=== PATIENT | female | born 1930 | race African-American/Black ===

== ENCOUNTER 2019-06-03 17:39 | Inpatient (IN) | payer MEDICARE, MEDICAID ==
[~2019-06-03] VITALS: Ht 165.1 cm; Wt 59.0 kg
[2019-06-03] MEDS ORDERED: MORPHINE SULFATE 4 MG/ML CPJ (NOT FOR IM USE) IV STA (18:18)
[2019-06-03] MEDS ORDERED: ONDANSETRON HCL 4MG/2ML INJ IV STA (18:18)
[2019-06-03 18:36] LABS: HEMATOCRIT. 34.2 % (36.0-48.0); HEMOGLOBIN. 11.1 g/dL (12.0-16.0); MEAN CORPUSCULAR HEMOGLOBIN 29.2 pg (28.0-32.0); MEAN CORPUSCULAR VOLUME 89.6 fL (81.0-99.0); MEAN PLATELET VOLUME 10.8 fl (7.4-10.4); PLATELET 117 x1000/uL (130-400); RED BLOOD CELL COUNT 3.82 mill/uL (4.2-5.4); RED CELL DISTRIBUTION WIDTH 14.6 % (11.6-14.6)
[2019-06-03 18:43] LABS: CHLORIDE 107 mEq/L (98-107)
[2019-06-03 18:45] LABS: INR 1.3; PROTHROMBIN TIME 12.7 sec (9.6-11.0)
[2019-06-03] MEDS ORDERED: POTASSIUM CHLORIDE 20MEQ TABLET SR PO ONE (19:00)
[2019-06-03 19:01] LABS: PLATELET ESTIMATE DECREASED
[2019-06-03] MEDS ORDERED: MORPHINE SULFATE 4 MG/ML CPJ (NOT FOR IM USE) IV ONE (20:15)
[2019-06-03 23:57] VITALS: BP 154/78
[2019-06-04] VITALS: BP 154/78
[2019-06-04] MEDS ORDERED: ONDANSETRON HCL 4MG/2ML INJ IV PRN ×2 (01:00→13:45)
[2019-06-04] MEDS: HYDROCODONE/ACETAMINOPHEN 5/325MG TABLET PO PRN ×2 (02:00→09:51)
[2019-06-04 04:00] VITALS: BP 152/82
[2019-06-04 06:34] LABS: BASOPHILS % 0.5 % (0.0-2.0); EOSINOPHILS % 0.1 % (0.0-5.0); HEMATOCRIT. 32.2 % (36.0-48.0); HEMOGLOBIN. 10.4 g/dL (12.0-16.0); MEAN CORPUSCULAR HEMOGLOBIN 29.1 pg (28.0-32.0); MEAN CORPUSCULAR VOLUME 89.9 fL (81.0-99.0); MEAN PLATELET VOLUME 10.5 fl (7.4-10.4); MONOCYTES % 8.5 % (2.0-8.0); NEUTROPHILS % 82.9 % (40.0-76.0); PLATELET 112 x1000/uL (130-400); RED BLOOD CELL COUNT 3.58 mill/uL (4.2-5.4); RED CELL DISTRIBUTION WIDTH 14.2 % (11.6-14.6)
[2019-06-04 06:46] LABS: CHLORIDE 106 mEq/L (98-107)
[2019-06-04] MEDS: SODIUM CHLORIDE 0.45% 1,000 ML IV SCH ×2 (08:02→18:10)
[2019-06-04] MEDS ORDERED: ENOXAPARIN 30MG/0.3ML SYR SUBCUT SCH (09:00)
[2019-06-04] MEDS ORDERED: ENOXAPARIN 40MG/0.4ML SYR SUBCUT SCH (09:00)
[2019-06-04] MEDS: HYDROMORPHONE HCL/PF 2MG/ML CPJ IV PRN ×2 (10:38→22:11)
[2019-06-04] MEDS ORDERED: BACITRACIN 15GM TUBE TOP ONE (11:10)
[2019-06-04] MEDS ORDERED: GENTAMICIN SULF 40MG/ML 2ML VIAL ONE (11:10)
[2019-06-04] MEDS ORDERED: BACITRACIN 50,000 UNITS/VIAL ONE (11:11)
[2019-06-04] MEDS ORDERED: VANCOMYCIN HCL 1 GM/VIAL ONE (11:11)
[2019-06-04] MEDS ORDERED: INFLUENZA VIRUS VACCINE(AFLURIA) 0.5ML SYR IM ONE (12:00)
[2019-06-04] MEDS ORDERED: PNEUMOCOCCAL 23-VAL P-SAC VAC 0.5 ML IM ONE (12:00)
[2019-06-04] MEDS ORDERED: NEOSTIGMINE METHYLSULFATE 1MG/ML 10 ML VIAL ONE (12:20)
[2019-06-04] MEDS ORDERED: ROCURONIUM BROMIDE 10MG/ML VIAL 5ML IV ONE (12:20)
[2019-06-04] MEDS ORDERED: GLYCOPYRROLATE 0.2 MG/ML 2ML VIAL ONE (12:20)
[2019-06-04] MEDS ORDERED: PROPOFOL 200MG/20ML VIAL IV ONE (12:20)
[2019-06-04] MEDS ORDERED: FENTANYL CITRATE/PF 50MCG/ML 2ML VIAL ONE ×2 (12:20→12:59)
[2019-06-04] MEDS ORDERED: MIDAZOLAM HCL 2 MG/2 ML VIAL ONE (12:20)
[2019-06-04] MEDS ORDERED: SUCCINYLCHOLINE CHLORIDE 200MG/10ML IV ONE (12:21)
[2019-06-04] MEDS ORDERED: PHENYLEPHRINE HCL 10 MG/ML 1ML (IV VIAL) IV ONE (12:21)
[2019-06-04] MEDS ORDERED: CEFAZOLIN SODIUM 1000MG/VIAL ONE (12:21)
[2019-06-04] MEDS ORDERED: ONDANSETRON HCL 4MG/2ML INJ ONE (12:21)
[2019-06-04] MEDS ORDERED: METOCLOPRAMIDE HCL 10MG/2ML VIAL ONE (12:21)
[2019-06-04] MEDS ORDERED: SODIUM CHLORIDE 0.9% 10ML VIAL ONE (12:21)
[2019-06-04] MEDS ORDERED: LIDOCAINE HCL/PF 1% 10 MG/ML 5ML VIAL ONE (12:21)
[2019-06-04] MEDS ORDERED: EPHEDRINE SULFATE 50MG/ML VIAL ONE (12:21)
[2019-06-04] MEDS ORDERED: ETOMIDATE 2MG/ML 10ML VIAL IV ONE (12:39)
[2019-06-04] MEDS ORDERED: TRANEXAMIC ACID 1,000 MG in SODIUM CHLORIDE 0.9% 100 ML IV NR (12:45)
[2019-06-04] MEDS ORDERED: MEPERIDINE HCL/PF 25MG/ML CPJ IV PRN (13:45)
[2019-06-04] MEDS ORDERED: HYDROMORPHONE HCL/PF 2MG/ML CPJ IV PRN (13:45)
[2019-06-04] MEDS ORDERED: MORPHINE SULFATE 2 MG/ML CPJ (NOT FOR IM USE) IV PRN (13:45)
[2019-06-04] MEDS ORDERED: SODIUM CHLORIDE 0.9% 1,000 ML IV ONE (14:30)
[2019-06-04] MEDS ORDERED: NALOXONE INJ IV PRN (15:00)
[2019-06-04] MEDS ORDERED: HYDROMORPHONE PCA 10MG/50ML IV PRN (15:00)
[2019-06-04] MEDS ORDERED: ONDANSETRON INJ IV PRN (15:00)
[2019-06-04] MEDS ORDERED: DIPHENHYDRAMINE INJ IV PRN (15:00)
[2019-06-04 16:00] LABS: HEMATOCRIT 30.4 % (36.0-48.0); MEAN CORPUSCULAR HEMOGLOBIN 29.3 pg (28.0-32.0); MEAN CORPUSCULAR VOLUME 89.3 fL (81.0-99.0); PLATELET 106 x1000/uL (130-400); RED BLOOD CELL COUNT 3.41 mill/uL (4.2-5.4); RED CELL DISTRIBUTION WIDTH 14.1 % (11.6-14.6)
[2019-06-04 16:14] LABS: CHLORIDE 109 mEq/L (98-107)
[2019-06-04 20:00] VITALS: BP 132/71
[2019-06-04] MEDS: CEFAZOLIN 1000MG PREMIX 50 ML IV SCH (21:51)
[2019-06-04 22:33] VITALS: BP 129/72
[2019-06-05] VITALS: BP 141/78
[2019-06-05 04:00] VITALS: BP 131/69
[2019-06-05] MEDS: HYDROCODONE/ACETAMINOPHEN 5/325MG TABLET PO PRN (05:12)
[2019-06-05] MEDS: CEFAZOLIN 1000MG PREMIX 50 ML IV SCH (06:31)
[2019-06-05 06:35] LABS: HEMATOCRIT. 32.7 % (36.0-48.0); HEMOGLOBIN. 10.7 g/dL (12.0-16.0); MEAN CORPUSCULAR HEMOGLOBIN 29.2 pg (28.0-32.0); MEAN CORPUSCULAR VOLUME 89.4 fL (81.0-99.0); MEAN PLATELET VOLUME 11.3 fl (7.4-10.4); PLATELET 111 x1000/uL (130-400); RED BLOOD CELL COUNT 3.65 mill/uL (4.2-5.4); RED CELL DISTRIBUTION WIDTH 14.3 % (11.6-14.6)
[2019-06-05 06:55] LABS: CHLORIDE 105 mEq/L (98-107)
[2019-06-05 08:00] VITALS: BP 156/80
[2019-06-05] MEDS: HYDROMORPHONE HCL/PF 2MG/ML CPJ IV PRN ×2 (09:42→22:37)
[2019-06-05] MEDS: SODIUM CHLORIDE 0.45% 1,000 ML IV SCH (10:16)
[2019-06-05] MEDS ORDERED: NITROGLYCERIN 0.4MG TABLET SL SL PRN (11:00)
[2019-06-05] MEDS: ASPIRIN 81MG EC TABLET PO SCH (11:21)
[2019-06-05] MEDS ORDERED: POTASSIUM CHLORIDE 20MEQ TABLET SR PO NR (11:30)
[2019-06-05 12:00] VITALS: BP 120/70
[2019-06-05] MEDS ORDERED: MAGNESIUM 2 G PREMIX 50 ML IV NR (12:30)
[2019-06-05 13:16] LABS: PLATELET ESTIMATE SLIGHTLY DECREASED
[2019-06-05 14:42] LABS: CLARITY URINE CLEAR (CLEAR); COLOR URINE YELLOW (YELLOW); KETONES URINE 1+ (NEGATIVE); LEUKOCYTE ESTERASE URINE NEGATIVE (NEGATIVE); NITRITE URINE NEGATIVE (NEGATIVE); OCCULT BLOOD URINE NEGATIVE (NEGATIVE); PH URINE 5.5 (4.5-8.0); PROTEIN URINE 1+ (NEGATIVE); SPECIFIC GRAVITY URINE 1.026 (1.005-1.030); UROBILINOGEN URINE 0.2 E.U./dL (0.2-1.0)
[2019-06-05 16:00] VITALS: BP 136/62
[2019-06-05 20:00] VITALS: BP 135/78
[2019-06-06] VITALS: BP 115/70
[2019-06-06] MEDS: SODIUM CHLORIDE 0.45% 1,000 ML IV SCH (00:21)
[2019-06-06 04:00] VITALS: BP 132/73
[2019-06-06 06:38] LABS: BASOPHILS % 0.3 % (0.0-2.0); EOSINOPHILS % 0.9 % (0.0-5.0); HEMATOCRIT. 28.8 % (36.0-48.0); HEMOGLOBIN. 9.5 g/dL (12.0-16.0); LYMPHOCYTES % 7.4 % (20.0-50.0); MEAN CORPUSCULAR HEMOGLOBIN 29.4 pg (28.0-32.0); MEAN CORPUSCULAR VOLUME 89.6 fL (81.0-99.0); MEAN PLATELET VOLUME 9.5 fl (7.4-10.4); MONOCYTES % 9.9 % (2.0-8.0); NEUTROPHILS % 81.5 % (40.0-76.0); PLATELET 84 x1000/uL (130-400); RED BLOOD CELL COUNT 3.22 mill/uL (4.2-5.4); RED CELL DISTRIBUTION WIDTH 14.4 % (11.6-14.6)
[2019-06-06] MEDS: HYDROCODONE/ACETAMINOPHEN 5/325MG TABLET PO PRN (06:55)
[2019-06-06 08:00] VITALS: BP 133/86
[2019-06-06] MEDS: ASPIRIN 81MG EC TABLET PO SCH (08:10)
[2019-06-06] MEDS ORDERED: POTASSIUM CHLORIDE 20MEQ TABLET SR PO NR (10:00)
[2019-06-06 10:01] LABS: CHLORIDE 106 mEq/L (98-107)
[2019-06-06] MEDS: HYDROMORPHONE HCL/PF 2MG/ML CPJ IV PRN ×2 (10:23→20:51)
[2019-06-06 12:00] VITALS: BP 110/72
[2019-06-06 16:00] VITALS: BP 155/99
[2019-06-06 20:00] VITALS: BP 143/75
[2019-06-06] MEDS: ATORVASTATIN CALCIUM 20MG TABLET PO SCH (20:41)
[2019-06-06] MEDS: ACETAMINOPHEN 325MG TABLET PO PRN (20:41)
[2019-06-07] VITALS: BP 104/70
[2019-06-07] MEDS: CEFTRIAXONE 1 G PREMIX 50 ML IV SCH ×2 (02:15→21:31)
[2019-06-07 04:00] VITALS: BP 138/85
[2019-06-07 07:29] LABS: HEMATOCRIT. 28.8 % (36.0-48.0); HEMOGLOBIN. 9.4 g/dL (12.0-16.0); MEAN CORPUSCULAR VOLUME 89.1 fL (81.0-99.0); MEAN PLATELET VOLUME 10.4 fl (7.4-10.4); PLATELET 120 x1000/uL (130-400); RED BLOOD CELL COUNT 3.23 mill/uL (4.2-5.4)
[2019-06-07 08:00] VITALS: BP 152/94
[2019-06-07] MEDS: ASPIRIN 81MG TABLET PO SCH (09:05)
[2019-06-07] MEDS: SODIUM CHLORIDE 0.45% 1,000 ML IV SCH ×2 (09:24→21:44)
[2019-06-07 10:14] LABS: PLATELET ESTIMATE DECREASED
[2019-06-07 12:00] VITALS: BP 127/87
[2019-06-07 16:00] VITALS: BP 138/72
[2019-06-07] MEDS: ACETAMINOPHEN 325MG TABLET PO PRN (16:15)
[2019-06-07 20:00] VITALS: BP 129/90
[2019-06-07] MEDS: ATORVASTATIN CALCIUM 20MG TABLET PO SCH (21:31)
[2019-06-08] VITALS: BP 138/78
[2019-06-08] MEDS: HYDROCODONE/ACETAMINOPHEN 5/325MG TABLET PO PRN (03:35)
[2019-06-08 04:00] VITALS: BP 138/78
[2019-06-08 07:01] LABS: CHLORIDE 109 mEq/L (98-107)
[2019-06-08 07:15] LABS: BASOPHILS % 0.5 % (0.0-2.0); EOSINOPHILS % 4.1 % (0.0-5.0); HEMATOCRIT. 26.9 % (36.0-48.0); LYMPHOCYTES % 9.8 % (20.0-50.0); MEAN CORPUSCULAR HEMOGLOBIN 29.8 pg (28.0-32.0); MEAN CORPUSCULAR VOLUME 89.2 fL (81.0-99.0); MONOCYTES % 10.9 % (2.0-8.0); NEUTROPHILS % 74.7 % (40.0-76.0); PLATELET 149 x1000/uL (130-400); RED BLOOD CELL COUNT 3.02 mill/uL (4.2-5.4); RED CELL DISTRIBUTION WIDTH 14.1 % (11.6-14.6)
[2019-06-08 08:00] VITALS: BP 136/72
[2019-06-08] MEDS: ASPIRIN 81MG TABLET PO SCH (09:22)
[2019-06-08] MEDS ORDERED: ENOXAPARIN 30MG/0.3ML SYR SUBCUT SCH (10:30)
[2019-06-08] MEDS: SODIUM CHLORIDE 0.45% 1,000 ML IV SCH (11:50)
[2019-06-08 12:00] VITALS: BP 135/95
[2019-06-08] MEDS ORDERED: BISACODYL 10MG SUPP PR PRN (15:15)
[2019-06-08] MEDS: LACTULOSE 20G/30ML UDC PO SCH ×4 (15:45→21:10)
[2019-06-08 16:00] VITALS: BP 135/95
[2019-06-08] MEDS ORDERED: DOCUSATE SODIUM 100MG CAPSULE PO SCH (17:00)
[2019-06-08 20:00] VITALS: BP 136/90
[2019-06-08] MEDS: ATORVASTATIN CALCIUM 20MG TABLET PO SCH (20:34)
[2019-06-08] MEDS: CEFTRIAXONE 1 G PREMIX 50 ML IV SCH (20:34)
[2019-06-09] MEDS ORDERED: POLYETHYLENE GLYCOL 3350 (17GM) 1 DOSE PACK PO SCH (09:00)
== END 2019-06-08 22:50 | DRG 853 ==
LOC: ER 17:39 → 6EST 20:07 → EDBEDREQTM 20:12 → EDBEDREQ 20:12 → ENRESERV 22:36
PROVIDERS: ADMIT Hospitalist; ATTEND Hospitalist
PROC: 0SRR0JA Replacement of Right Hip Joint, Femoral Surface with Synthetic Substitute, Uncemented, Open Approach (ICD-10-PCS; principal; 2019-06-05)
DX: A41.9 Sepsis, unspecified organism (principal); S72.031A Displaced midcervical fracture of right femur, initial encounter for closed fracture; I21.4 Non-ST elevation (NSTEMI) myocardial infarction; I47.2 Ventricular tachycardia; I11.9 Hypertensive heart disease without heart failure; E87.6 Hypokalemia; D69.6 Thrombocytopenia, unspecified; M19.90 Unspecified osteoarthritis, unspecified site; D64.9 Anemia, unspecified; E11.42 Type 2 diabetes mellitus with diabetic polyneuropathy; W07.XXXA Fall from chair, initial encounter; M54.40 Lumbago with sciatica, unspecified side; R26.9 Unspecified abnormalities of gait and mobility; G89.29 Other chronic pain; I48.91 Unspecified atrial fibrillation; Z79.899 Other long term (current) drug therapy; Y93.89 Activity, other specified; Y92.89 Other specified places as the place of occurrence of the external cause; Z79.4 Long term (current) use of insulin; Y99.8 Other external cause status
CPT/HCPCS: 36415; 71045; 72170; 73521; 80048; 80061; 81003; 83735; 83880; 84132; 84145; 84443; 84484; 85027; 88305; 88311; 93005; 93306; 93970; 96374; 96375; 96376; 97110; 97116; 97162; 99291; C1893; J0330; J0690; J0696; J1170; J1580; J1650; J2250; J2270; J2370; J2405; J2704; J2710; J2765; J3010; J3370; J3475; J3490; J7050

== ENCOUNTER 2019-06-08 22:45 | Inpatient (IN) | payer MEDICARE, MEDICAID ==
[~2019-06-08] VITALS: Ht 165.1 cm; Wt 59.0 kg
[2019-06-08 23:00] VITALS: BP_SYST 139; BP_DIAS 81; BP_DIAS 91
[2019-06-09] MEDS ORDERED: HYDROMORPHONE HCL/PF 2MG/ML CPJ IV PRN (01:00)
[2019-06-09] MEDS ORDERED: BISACODYL 5MG TABLET PO PRN (01:00)
[2019-06-09] MEDS ORDERED: ONDANSETRON HCL 4MG/2ML INJ IV PRN (01:00)
[2019-06-09] MEDS ORDERED: NITROGLYCERIN 0.4MG TABLET SL SL PRN (01:00)
[2019-06-09 07:09] LABS: BASOPHILS % 0.7 % (0.0-2.0); EOSINOPHILS % 2.9 % (0.0-5.0); HEMATOCRIT. 28.9 % (36.0-48.0); HEMOGLOBIN. 9.8 g/dL (12.0-16.0); LYMPHOCYTES % 11.2 % (20.0-50.0); MEAN CORPUSCULAR HEMOGLOBIN 30.2 pg (28.0-32.0); MEAN PLATELET VOLUME 9.3 fl (7.4-10.4); MONOCYTES % 12.2 % (2.0-8.0); PLATELET 185 x1000/uL (130-400); RED BLOOD CELL COUNT 3.24 mill/uL (4.2-5.4)
[2019-06-09 07:36] LABS: CHLORIDE 108 mEq/L (98-107)
[2019-06-09 08:00] VITALS: BP 129/84
[2019-06-09] MEDS: HYDROCODONE/ACETAMINOPHEN 5/325MG TABLET PO PRN (08:58)
[2019-06-09] MEDS: LACTULOSE 20G/30ML UDC PO SCH ×4 (08:59→21:50)
[2019-06-09] MEDS: POLYETHYLENE GLYCOL 3350 (17GM) 1 DOSE PACK PO SCH (08:59)
[2019-06-09] MEDS: ASPIRIN 81MG TABLET PO SCH (08:59)
[2019-06-09] MEDS: DOCUSATE SODIUM 100MG CAPSULE PO SCH ×2 (08:59→17:00)
[2019-06-09] MEDS: ENOXAPARIN 30MG/0.3ML SYR SUBCUT SCH (11:23)
[2019-06-09] MEDS ORDERED: INFLUENZA VIRUS VACCINE(AFLURIA) 0.5ML SYR IM ONE (12:00)
[2019-06-09] MEDS ORDERED: POTASSIUM CHLORIDE 20MEQ TABLET SR PO SCH (13:00)
[2019-06-09] MEDS ORDERED: POTASSIUM CHLORIDE 20MEQ TABLET SR PO ONE (13:15)
[2019-06-09 20:00] VITALS: BP 126/83
[2019-06-09] MEDS ORDERED: CEFTRIAXONE 1 G PREMIX 50 ML IV SCH (21:00)
[2019-06-09] MEDS: ATORVASTATIN CALCIUM 20MG TABLET PO SCH (21:50)
[2019-06-10 07:04] LABS: BASOPHILS % 0.9 % (0.0-2.0); EOSINOPHILS % 4.7 % (0.0-5.0); HEMATOCRIT. 27.6 % (36.0-48.0); LYMPHOCYTES % 11.2 % (20.0-50.0); MEAN CORPUSCULAR HEMOGLOBIN 28.8 pg (28.0-32.0); MEAN CORPUSCULAR VOLUME 88.5 fL (81.0-99.0); MEAN PLATELET VOLUME 8.9 fl (7.4-10.4); MONOCYTES % 12.4 % (2.0-8.0); NEUTROPHILS % 70.8 % (40.0-76.0); PLATELET 211 x1000/uL (130-400); RED BLOOD CELL COUNT 3.12 mill/uL (4.2-5.4); RED CELL DISTRIBUTION WIDTH 14.1 % (11.6-14.6)
[2019-06-10 07:27] LABS: FOLIC ACID (FOLATE) SERUM 18.4 ng/mL (>5.38)
[2019-06-10 07:34] LABS: CHLORIDE 108 mEq/L (98-107)
[2019-06-10 07:47] LABS: PHOSPHORUS 3.4 mg/dL (2.5-4.9)
[2019-06-10 07:52] LABS: TOTAL IRON BINDING CAPACITY 127 ug/dL (250-450)
[2019-06-10 08:02] VITALS: BP 148/78
[2019-06-10] MEDS ORDERED: POTASSIUM CHLORIDE 20MEQ TABLET SR PO NR (08:15)
[2019-06-10] MEDS: ASPIRIN 81MG TABLET PO SCH (08:29)
[2019-06-10] MEDS: DOCUSATE SODIUM 100MG CAPSULE PO SCH ×2 (08:30→16:31)
[2019-06-10] MEDS: POLYETHYLENE GLYCOL 3350 (17GM) 1 DOSE PACK PO SCH (08:30)
[2019-06-10] MEDS: LACTULOSE 20G/30ML UDC PO SCH ×4 (08:30→21:00)
[2019-06-10] MEDS: ENOXAPARIN 30MG/0.3ML SYR SUBCUT SCH (08:30)
[2019-06-10 10:05] LABS: CLARITY URINE CLEAR (CLEAR); COLOR URINE YELLOW (YELLOW); KETONES URINE TRACE (NEGATIVE); LEUKOCYTE ESTERASE URINE TRACE (NEGATIVE); NITRITE URINE NEGATIVE (NEGATIVE); OCCULT BLOOD URINE NEGATIVE (NEGATIVE); PROTEIN URINE TRACE (NEGATIVE); SPECIFIC GRAVITY URINE 1.022 (1.005-1.030); UROBILINOGEN URINE 0.2 E.U./dL (0.2-1.0)
[2019-06-10] MEDS ORDERED: FERR-71 PO (14:32)
[2019-06-10] MEDS ORDERED: [UNRECOGNIZED DRUG - CODE] PO (14:32)
[2019-06-10 20:00] VITALS: BP 131/80
[2019-06-10] MEDS: ATORVASTATIN CALCIUM 20MG TABLET PO SCH (21:33)
[2019-06-11] MEDS: HYDROCODONE/ACETAMINOPHEN 5/325MG TABLET PO PRN (03:55)
[2019-06-11 08:02] VITALS: BP 136/77
[2019-06-11] MEDS: ASPIRIN 81MG TABLET PO SCH (08:33)
[2019-06-11] MEDS: DOCUSATE SODIUM 100MG CAPSULE PO SCH ×2 (08:33→16:25)
[2019-06-11] MEDS: ENOXAPARIN 30MG/0.3ML SYR SUBCUT SCH (08:34)
[2019-06-11] MEDS: LACTULOSE 20G/30ML UDC PO SCH ×4 (09:00→20:50)
[2019-06-11] MEDS: POLYETHYLENE GLYCOL 3350 (17GM) 1 DOSE PACK PO SCH (09:00)
[2019-06-11 10:07] LABS: BASOPHILS % 0.9 % (0.0-2.0); HEMATOCRIT. 27.9 % (36.0-48.0); HEMOGLOBIN. 9.3 g/dL (12.0-16.0); LYMPHOCYTES % 13.5 % (20.0-50.0); MEAN CORPUSCULAR HEMOGLOBIN 29.7 pg (28.0-32.0); MEAN CORPUSCULAR VOLUME 88.4 fL (81.0-99.0); MEAN PLATELET VOLUME 8.3 fl (7.4-10.4); MONOCYTES % 10.8 % (2.0-8.0); NEUTROPHILS % 70.8 % (40.0-76.0); PLATELET 259 x1000/uL (130-400); RED BLOOD CELL COUNT 3.15 mill/uL (4.2-5.4); RED CELL DISTRIBUTION WIDTH 14.1 % (11.6-14.6)
[2019-06-11 10:15] LABS: CHLORIDE 106 mEq/L (98-107)
[2019-06-11] MEDS ORDERED: POTASSIUM CHLORIDE 20MEQ TABLET SR PO SCH (11:00)
[2019-06-11] MEDS ORDERED: AMLO5TAB88 PO (17:12)
[2019-06-11] MEDS ORDERED: OMEP40CA34 MT (17:14)
[2019-06-11 20:00] VITALS: BP 122/83
[2019-06-11] MEDS: ATORVASTATIN CALCIUM 20MG TABLET PO SCH (20:50)
[2019-06-12] MEDS: HYDROCODONE/ACETAMINOPHEN 5/325MG TABLET PO PRN (05:31)
[2019-06-12 08:16] VITALS: BP 144/80
[2019-06-12] MEDS: POLYETHYLENE GLYCOL 3350 (17GM) 1 DOSE PACK PO SCH (08:25)
[2019-06-12] MEDS: LACTULOSE 20G/30ML UDC PO SCH ×4 (09:34→20:23)
[2019-06-12] MEDS: DOCUSATE SODIUM 100MG CAPSULE PO SCH ×2 (09:34→16:05)
[2019-06-12] MEDS: FERROUS SULFATE 325MG TABLET PO SCH (11:57)
[2019-06-12] MEDS: AMLODIPINE 5MG TABLET PO SCH (11:58)
[2019-06-12] MEDS: OMEPRAZOLE 20MG CAPSULE EXTENDED RELEASE PO SCH (16:05)
[2019-06-12 20:00] VITALS: BP 127/69
[2019-06-12] MEDS: ATORVASTATIN CALCIUM 20MG TABLET PO SCH (20:24)
[2019-06-13 07:45] VITALS: BP 130/82
[2019-06-13] MEDS: LACTULOSE 20G/30ML UDC PO SCH ×4 (08:14→21:46)
[2019-06-13] MEDS: FERROUS SULFATE 325MG TABLET PO SCH (08:14)
[2019-06-13] MEDS: OMEPRAZOLE 20MG CAPSULE EXTENDED RELEASE PO SCH (08:14)
[2019-06-13] MEDS: POLYETHYLENE GLYCOL 3350 (17GM) 1 DOSE PACK PO SCH (08:14)
[2019-06-13] MEDS: AMLODIPINE 5MG TABLET PO SCH (08:15)
[2019-06-13] MEDS: DOCUSATE SODIUM 100MG CAPSULE PO SCH ×2 (08:15→16:12)
[2019-06-13] MEDS: ACETAMINOPHEN 325MG TABLET PO PRN ×2 (08:16→17:45)
[2019-06-13] MEDS: GABAPENTIN 100MG CAPSULE PO SCH (13:16)
[2019-06-13 20:00] VITALS: BP 137/85
[2019-06-13] MEDS: ATORVASTATIN CALCIUM 20MG TABLET PO SCH (21:46)
[2019-06-14 08:00] VITALS: BP 131/81
[2019-06-14] MEDS: POLYETHYLENE GLYCOL 3350 (17GM) 1 DOSE PACK PO SCH (08:48)
[2019-06-14] MEDS: FERROUS SULFATE 325MG TABLET PO SCH (08:49)
[2019-06-14] MEDS: LACTULOSE 20G/30ML UDC PO SCH ×4 (08:49→21:00)
[2019-06-14] MEDS: GABAPENTIN 100MG CAPSULE PO SCH (08:49)
[2019-06-14] MEDS: DOCUSATE SODIUM 100MG CAPSULE PO SCH ×2 (08:50→17:00)
[2019-06-14] MEDS: AMLODIPINE 5MG TABLET PO SCH (08:50)
[2019-06-14] MEDS ORDERED: FAMOTIDINE 20MG TABLET PO SCH (09:00)
[2019-06-14] MEDS ORDERED: MECLIZINE 25MG TABLET PO PRN (12:30)
[2019-06-14] MEDS: ENOXAPARIN 30MG/0.3ML SYR SUBCUT SCH (12:46)
[2019-06-14] MEDS: ASPIRIN 81MG TABLET PO SCH (17:00)
[2019-06-14 20:00] VITALS: BP 132/74
[2019-06-14] MEDS: ATORVASTATIN CALCIUM 20MG TABLET PO SCH (21:12)
[2019-06-14] MEDS: FAMOTIDINE 20MG TABLET PO SCH (21:12)
[2019-06-15 06:09] LABS: 25-HYDROXY VITAMIN D3 4.4 ng/mL (.)
[2019-06-15 07:59] LABS: BASOPHILS % 0.8 % (0.0-2.0); EOSINOPHILS % 1.7 % (0.0-5.0); HEMATOCRIT. 28.7 % (36.0-48.0); HEMOGLOBIN. 9.2 g/dL (12.0-16.0); MEAN CORPUSCULAR HEMOGLOBIN 28.6 pg (28.0-32.0); MEAN PLATELET VOLUME 8.4 fl (7.4-10.4); MONOCYTES % 7.8 % (2.0-8.0); NEUTROPHILS % 77.7 % (40.0-76.0); PLATELET 264 x1000/uL (130-400); RED BLOOD CELL COUNT 3.23 mill/uL (4.2-5.4); RED CELL DISTRIBUTION WIDTH 14.1 % (11.6-14.6)
[2019-06-15 08:10] VITALS: BP 126/84
[2019-06-15] MEDS: ASPIRIN 81MG TABLET PO SCH (08:30)
[2019-06-15] MEDS: POLYETHYLENE GLYCOL 3350 (17GM) 1 DOSE PACK PO SCH (08:30)
[2019-06-15] MEDS: FERROUS SULFATE 325MG TABLET PO SCH (08:30)
[2019-06-15] MEDS: FAMOTIDINE 20MG TABLET PO SCH ×2 (08:30→20:52)
[2019-06-15] MEDS: DOCUSATE SODIUM 100MG CAPSULE PO SCH ×2 (08:30→16:24)
[2019-06-15] MEDS: AMLODIPINE 5MG TABLET PO SCH (08:30)
[2019-06-15] MEDS: LACTULOSE 20G/30ML UDC PO SCH ×4 (08:30→20:52)
[2019-06-15] MEDS: GABAPENTIN 100MG CAPSULE PO SCH (08:30)
[2019-06-15 08:34] LABS: CHLORIDE 108 mEq/L (98-107)
[2019-06-15] MEDS: ENOXAPARIN 30MG/0.3ML SYR SUBCUT SCH (08:35)
[2019-06-15 08:40] LABS: PHOSPHORUS 3.1 mg/dL (2.5-4.9)
[2019-06-15 15:16] LABS: BASOPHILS % 0.7 % (0.0-2.0); EOSINOPHILS % 1.1 % (0.0-5.0); HEMATOCRIT. 28.7 % (36.0-48.0); HEMOGLOBIN. 9.4 g/dL (12.0-16.0); LYMPHOCYTES % 9.8 % (20.0-50.0); MEAN CORPUSCULAR VOLUME 88.8 fL (81.0-99.0); MEAN PLATELET VOLUME 8.1 fl (7.4-10.4); NEUTROPHILS % 81.4 % (40.0-76.0); PLATELET 262 x1000/uL (130-400); RED BLOOD CELL COUNT 3.23 mill/uL (4.2-5.4); RED CELL DISTRIBUTION WIDTH 14.3 % (11.6-14.6)
[2019-06-15] MEDS: ERGOCALCIFEROL 50000UNITS CAPSULE PO SCH (17:00)
[2019-06-15 20:00] VITALS: BP 119/70
[2019-06-15] MEDS: ATORVASTATIN CALCIUM 20MG TABLET PO SCH (20:52)
[2019-06-16] MEDS: HYDROCODONE/ACETAMINOPHEN 5/325MG TABLET PO PRN ×2 (05:46→08:28)
[2019-06-16 06:36] LABS: BASOPHILS % 0.8 % (0.0-2.0); EOSINOPHILS % 2.5 % (0.0-5.0); HEMATOCRIT. 26.1 % (36.0-48.0); HEMOGLOBIN. 8.6 g/dL (12.0-16.0); LYMPHOCYTES % 10.8 % (20.0-50.0); MEAN CORPUSCULAR HEMOGLOBIN 29.1 pg (28.0-32.0); MEAN CORPUSCULAR VOLUME 88.7 fL (81.0-99.0); MEAN PLATELET VOLUME 8.1 fl (7.4-10.4); MONOCYTES % 7.7 % (2.0-8.0); NEUTROPHILS % 78.2 % (40.0-76.0); PLATELET 256 x1000/uL (130-400); RED BLOOD CELL COUNT 2.95 mill/uL (4.2-5.4); RED CELL DISTRIBUTION WIDTH 14.5 % (11.6-14.6)
[2019-06-16 07:36] LABS: CHLORIDE 108 mEq/L (98-107)
[2019-06-16 07:51] VITALS: BP 136/68
[2019-06-16] MEDS: FAMOTIDINE 20MG TABLET PO SCH ×2 (08:26→20:53)
[2019-06-16] MEDS: LACTULOSE 20G/30ML UDC PO SCH ×5 (08:27→20:52)
[2019-06-16] MEDS: GABAPENTIN 100MG CAPSULE PO SCH (08:27)
[2019-06-16] MEDS: FERROUS SULFATE 325MG TABLET PO SCH (08:27)
[2019-06-16] MEDS: CALCIUM CARBONATE/VITAMIN D3 500MG TABLET PO SCH (08:27)
[2019-06-16] MEDS: POLYETHYLENE GLYCOL 3350 (17GM) 1 DOSE PACK PO SCH (08:27)
[2019-06-16] MEDS: ASPIRIN 81MG TABLET PO SCH (08:27)
[2019-06-16] MEDS: AMLODIPINE 5MG TABLET PO SCH (08:29)
[2019-06-16] MEDS: ENOXAPARIN 40MG/0.4ML SYR SUBCUT SCH (08:29)
[2019-06-16] MEDS: DOCUSATE SODIUM 100MG CAPSULE PO SCH ×3 (08:29→17:00)
[2019-06-16] MEDS ORDERED: POTASSIUM CHLORIDE 20MEQ TABLET SR PO NR (13:45)
[2019-06-16 20:00] VITALS: BP 105/62
[2019-06-16] MEDS: ATORVASTATIN CALCIUM 20MG TABLET PO SCH (20:53)
[2019-06-17 08:00] VITALS: BP 108/61
[2019-06-17 08:08] LABS: BASOPHILS % 1.1 % (0.0-2.0); EOSINOPHILS % 3.2 % (0.0-5.0); HEMATOCRIT. 24.9 % (36.0-48.0); HEMOGLOBIN. 8.3 g/dL (12.0-16.0); MEAN CORPUSCULAR HEMOGLOBIN 29.4 pg (28.0-32.0); MEAN CORPUSCULAR VOLUME 88.5 fL (81.0-99.0); MEAN PLATELET VOLUME 8.2 fl (7.4-10.4); MONOCYTES % 8.8 % (2.0-8.0); NEUTROPHILS % 74.9 % (40.0-76.0); PLATELET 241 x1000/uL (130-400); RED BLOOD CELL COUNT 2.81 mill/uL (4.2-5.4); RED CELL DISTRIBUTION WIDTH 14.5 % (11.6-14.6)
[2019-06-17 08:35] LABS: CHLORIDE 110 mEq/L (98-107)
[2019-06-17] MEDS: LACTULOSE 20G/30ML UDC PO SCH ×4 (08:52→20:28)
[2019-06-17] MEDS: ENOXAPARIN 40MG/0.4ML SYR SUBCUT SCH (08:52)
[2019-06-17] MEDS: ASPIRIN 81MG TABLET PO SCH (08:52)
[2019-06-17] MEDS: FERROUS SULFATE 325MG TABLET PO SCH (08:53)
[2019-06-17] MEDS: GABAPENTIN 100MG CAPSULE PO SCH (08:53)
[2019-06-17] MEDS: AMLODIPINE 5MG TABLET PO SCH (08:53)
[2019-06-17] MEDS: FAMOTIDINE 20MG TABLET PO SCH ×2 (08:53→20:28)
[2019-06-17] MEDS: CALCIUM CARBONATE/VITAMIN D3 500MG TABLET PO SCH (08:53)
[2019-06-17] MEDS: DOCUSATE SODIUM 100MG CAPSULE PO SCH ×2 (08:54→16:02)
[2019-06-17] MEDS: HYDROCODONE/ACETAMINOPHEN 5/325MG TABLET PO PRN (08:54)
[2019-06-17] MEDS: POLYETHYLENE GLYCOL 3350 (17GM) 1 DOSE PACK PO SCH (08:54)
[2019-06-17 20:00] VITALS: BP 132/66
[2019-06-17] MEDS: ATORVASTATIN CALCIUM 20MG TABLET PO SCH (20:27)
[2019-06-18 08:00] VITALS: BP 101/52
[2019-06-18] MEDS: CALCIUM CARBONATE/VITAMIN D3 500MG TABLET PO SCH (08:59)
[2019-06-18] MEDS: GABAPENTIN 100MG CAPSULE PO SCH (08:59)
[2019-06-18] MEDS: FAMOTIDINE 20MG TABLET PO SCH ×2 (08:59→20:22)
[2019-06-18] MEDS: ASPIRIN 81MG TABLET PO SCH (08:59)
[2019-06-18] MEDS: DOCUSATE SODIUM 100MG CAPSULE PO SCH ×2 (08:59→16:55)
[2019-06-18] MEDS: LACTULOSE 20G/30ML UDC PO SCH ×4 (09:00→20:22)
[2019-06-18] MEDS: FERROUS SULFATE 325MG TABLET PO SCH (09:00)
[2019-06-18] MEDS: POLYETHYLENE GLYCOL 3350 (17GM) 1 DOSE PACK PO SCH (09:00)
[2019-06-18] MEDS: AMLODIPINE 5MG TABLET PO SCH (09:00)
[2019-06-18] MEDS: ENOXAPARIN 40MG/0.4ML SYR SUBCUT SCH (09:01)
[2019-06-18 17:09] LABS: EOSINOPHILS % 2.3 % (0.0-5.0); HEMATOCRIT. 27.8 % (36.0-48.0); HEMOGLOBIN. 9.2 g/dL (12.0-16.0); LYMPHOCYTES % 10.6 % (20.0-50.0); MEAN CORPUSCULAR HEMOGLOBIN 29.3 pg (28.0-32.0); MEAN CORPUSCULAR VOLUME 88.9 fL (81.0-99.0); MONOCYTES % 8.2 % (2.0-8.0); NEUTROPHILS % 77.9 % (40.0-76.0); PLATELET 318 x1000/uL (130-400); RED BLOOD CELL COUNT 3.13 mill/uL (4.2-5.4); RED CELL DISTRIBUTION WIDTH 14.8 % (11.6-14.6)
[2019-06-18 20:00] VITALS: BP 142/82
[2019-06-18] MEDS: ATORVASTATIN CALCIUM 20MG TABLET PO SCH (20:22)
[2019-06-19 07:45] VITALS: BP 142/75
[2019-06-19 08:18] LABS: CHLORIDE 108 mEq/L (98-107)
[2019-06-19 08:20] LABS: BASOPHILS % 1.2 % (0.0-2.0); HEMATOCRIT. 26.6 % (36.0-48.0); HEMOGLOBIN. 8.9 g/dL (12.0-16.0); MEAN CORPUSCULAR HEMOGLOBIN 29.8 pg (28.0-32.0); MEAN CORPUSCULAR VOLUME 88.8 fL (81.0-99.0); MEAN PLATELET VOLUME 8.5 fl (7.4-10.4); MONOCYTES % 8.7 % (2.0-8.0); NEUTROPHILS % 76.1 % (40.0-76.0); PLATELET 278 x1000/uL (130-400); RED BLOOD CELL COUNT 2.99 mill/uL (4.2-5.4); RED CELL DISTRIBUTION WIDTH 14.6 % (11.6-14.6)
[2019-06-19] MEDS: FAMOTIDINE 20MG TABLET PO SCH ×2 (08:37→20:12)
[2019-06-19] MEDS: GABAPENTIN 100MG CAPSULE PO SCH (08:37)
[2019-06-19] MEDS: FERROUS SULFATE 325MG TABLET PO SCH (08:37)
[2019-06-19] MEDS: ASPIRIN 81MG TABLET PO SCH (08:37)
[2019-06-19] MEDS: DOCUSATE SODIUM 100MG CAPSULE PO SCH ×2 (08:37→16:41)
[2019-06-19] MEDS: AMLODIPINE 5MG TABLET PO SCH (08:37)
[2019-06-19] MEDS: CALCIUM CARBONATE/VITAMIN D3 500MG TABLET PO SCH (08:37)
[2019-06-19] MEDS: POLYETHYLENE GLYCOL 3350 (17GM) 1 DOSE PACK PO SCH (08:38)
[2019-06-19] MEDS: ENOXAPARIN 40MG/0.4ML SYR SUBCUT SCH (08:38)
[2019-06-19] MEDS: LACTULOSE 20G/30ML UDC PO SCH ×4 (08:38→20:12)
[2019-06-19] MEDS ORDERED: POTASSIUM CHLORIDE 20MEQ TABLET SR PO NR (11:00)
[2019-06-19 20:00] VITALS: BP 118/69
[2019-06-19] MEDS: ATORVASTATIN CALCIUM 20MG TABLET PO SCH (20:12)
[2019-06-20 08:00] VITALS: BP 133/84
[2019-06-20] MEDS: DOCUSATE SODIUM 100MG CAPSULE PO SCH ×2 (08:28→16:35)
[2019-06-20] MEDS: GABAPENTIN 100MG CAPSULE PO SCH (08:28)
[2019-06-20] MEDS: CALCIUM CARBONATE/VITAMIN D3 500MG TABLET PO SCH (08:28)
[2019-06-20] MEDS: AMLODIPINE 5MG TABLET PO SCH (08:28)
[2019-06-20] MEDS: FAMOTIDINE 20MG TABLET PO SCH ×2 (08:28→21:56)
[2019-06-20] MEDS: FERROUS SULFATE 325MG TABLET PO SCH (08:28)
[2019-06-20] MEDS: ASPIRIN 81MG TABLET PO SCH (08:29)
[2019-06-20] MEDS: LACTULOSE 20G/30ML UDC PO SCH ×4 (08:29→21:00)
[2019-06-20] MEDS: ENOXAPARIN 40MG/0.4ML SYR SUBCUT SCH (08:29)
[2019-06-20] MEDS: POLYETHYLENE GLYCOL 3350 (17GM) 1 DOSE PACK PO SCH (08:29)
[2019-06-20 08:37] LABS: CHLORIDE 109 mEq/L (98-107)
[2019-06-20 20:00] VITALS: BP 117/76
[2019-06-20] MEDS: ATORVASTATIN CALCIUM 20MG TABLET PO SCH (21:56)
[2019-06-21] MEDS: FAMOTIDINE 20MG TABLET PO SCH (08:00)
[2019-06-21 08:18] VITALS: BP 134/78
[2019-06-21] MEDS: LACTULOSE 20G/30ML UDC PO SCH ×4 (09:00→22:05)
[2019-06-21] MEDS: DOCUSATE SODIUM 100MG CAPSULE PO SCH ×2 (09:10→16:18)
[2019-06-21] MEDS: AMLODIPINE 5MG TABLET PO SCH (09:10)
[2019-06-21] MEDS: CALCIUM CARBONATE/VITAMIN D3 500MG TABLET PO SCH (09:10)
[2019-06-21] MEDS: GABAPENTIN 100MG CAPSULE PO SCH (09:10)
[2019-06-21] MEDS: POLYETHYLENE GLYCOL 3350 (17GM) 1 DOSE PACK PO SCH (09:10)
[2019-06-21] MEDS: ASPIRIN 81MG TABLET PO SCH (09:10)
[2019-06-21] MEDS: FERROUS SULFATE 325MG TABLET PO SCH (09:10)
[2019-06-21] MEDS: ENOXAPARIN 40MG/0.4ML SYR SUBCUT SCH (09:11)
[2019-06-21] MEDS: ATORVASTATIN CALCIUM 20MG TABLET PO SCH (22:09)
[2019-06-22 08:11] VITALS: BP 129/79
[2019-06-22] MEDS ORDERED: FAMOTIDINE 20MG TABLET PO SCH (09:00)
[2019-06-22] MEDS: FERROUS SULFATE 325MG TABLET PO SCH (11:51)
[2019-06-22] MEDS: GABAPENTIN 100MG CAPSULE PO SCH (11:52)
[2019-06-22] MEDS: DOCUSATE SODIUM 100MG CAPSULE PO SCH (11:52)
[2019-06-22] MEDS: LACTULOSE 20G/30ML UDC PO SCH (11:52)
[2019-06-22] MEDS: ASPIRIN 81MG TABLET PO SCH (11:52)
[2019-06-22] MEDS: POLYETHYLENE GLYCOL 3350 (17GM) 1 DOSE PACK PO SCH (11:52)
[2019-06-22] MEDS: AMLODIPINE 5MG TABLET PO SCH (11:53)
[2019-06-22] MEDS: ENOXAPARIN 40MG/0.4ML SYR SUBCUT SCH (11:57)
[2019-06-22] MEDS: ERGOCALCIFEROL 50000UNITS CAPSULE PO SCH (11:57)
[2019-06-22] MEDS: CALCIUM CARBONATE/VITAMIN D3 500MG TABLET PO SCH (11:57)
[2019-06-22 12:48] VITALS: BP 127/83
== END 2019-06-22 13:20 | disposition home health service (06) | DRG 535 ==
LOC: UNDOADMIN 06-09 00:18 → 6EST 06-09 00:18 → UNDOADMIN 06-09 00:30
PROVIDERS: ADMIT Physical Medicine & Rehabilitation Spinal Cord Injury Medicine; ATTEND Hospitalist
DX: S72.091A Other fracture of head and neck of right femur, initial encounter for closed fracture (principal); I21.4 Non-ST elevation (NSTEMI) myocardial infarction; A41.9 Sepsis, unspecified organism; E46 Unspecified protein-calorie malnutrition; I47.2 Ventricular tachycardia; M79.609 Pain in unspecified limb; R26.9 Unspecified abnormalities of gait and mobility; I10 Essential (primary) hypertension; G89.29 Other chronic pain; D64.9 Anemia, unspecified; D72.829 Elevated white blood cell count, unspecified; D69.6 Thrombocytopenia, unspecified; E11.42 Type 2 diabetes mellitus with diabetic polyneuropathy; I48.91 Unspecified atrial fibrillation; M16.10 Unilateral primary osteoarthritis, unspecified hip; M54.40 Lumbago with sciatica, unspecified side; E87.6 Hypokalemia; W07.XXXA Fall from chair, initial encounter; R50.82 Postprocedural fever; K21.9 Gastro-esophageal reflux disease without esophagitis; K44.9 Diaphragmatic hernia without obstruction or gangrene; F06.31 Mood disorder due to known physiological condition with depressive features; Z68.21 Body mass index [BMI] 21.0-21.9, adult; Y93.89 Activity, other specified; Y92.89 Other specified places as the place of occurrence of the external cause; Y99.8 Other external cause status
CPT/HCPCS: 36415; 71045; 80048; 81003; 82306; 82607; 82728; 82746; 83540; 83550; 83735; 84100; 84132; 84134; 84145; 84443; 84484; 85379; 90686; 92523; 93005; 93970; 97110; 97112; 97116; 97150; 97162; 97166; 97530; 97535; J0696; J1650; J7040